=== PATIENT | female | born 1950 | race African-American/Black ===

== ENCOUNTER 2016-07-16 23:25 | Emergency (ER) | payer OTHER ==
[~2016-07-16] VITALS: Ht 154.9 cm; Wt 81.1 kg
[2016-07-16 23:31] VITALS: TEMP 36.9; Ht 154.9 cm; Wt 81.1 kg
[2016-07-17] MEDS ORDERED: OXYCODONE HCL IR 5 MG TAB (IMMEDIATE RELEASE) PO STA (00:16)
--- NOTE | 2016-07-17 00:52 | EMERGENCY ROOM VISIT NOTE ---
History Report prepared by Hien: Jonathan Lee Under the Supervision of: Dr. Aron Muse M.D. First contact with patient: 00:03 Chief Complaint: CHEST PAIN Stated Complaint: CHEST AND BACK PAIN Nursing Triage Summary: Pt reports chest/back/neck pain since last night for which she took motrin, which she reports helped "just a little bit." Pt reports that she takes prescription oxycodone every other day. She is travelling and left oxycodone at home so was unable to take any for 2 days. Pt reports pain continued today. Denies nausea/dizziness. Reports "tightness" in incision. History of Present Illness The patient is a 65 year old female who presents to the Emergency Room with complaints of waxing and waning left-sided chest pain beginning last night. The patient states that she had laparoscopic bypass surgery last month. She believes that this pain is from her incision as it is pulling and pinching similarly to the pain that she had 1 week after her surgery when she did not take her pain medication. The patient notes that she is visiting for a graduation and left her prescribed [place]codone in [place]. She states that she has been taking Motrin for the pain until she gets home with no relief of her symptoms. She complains of back pain that radiates to her neck. She denies having any shortness of breath, leg swelling, calf pain, history of blood clots , fevers, headache, and loss of consciousness. The patient states that she has had heart problems since 2008 and has previously had a stent placed. She reports that she does not want to take nitroglycerin because it makes her blood pressure drop. Source of History: patient Onset: last night Position: chest (left) Quality: other (pulling and pinching) Timing: waxes/wanes Modifying Factors (Relieving): other (none) Associated Symptoms: + back pain, + neck pain, No LOC, No SOB, No fevers, No headache Note: She denies having any leg pain and history of blood clots. Review of Systems See HPI for pertinent positives & negatives. A total of 10 systems reviewed and were otherwise negative. Past Medical & Surgical Surgical Problems: (1) H/O heart bypass surgery (2) History of heart artery stent Family History No pertinent family history stated. Social History Smoking Status: Never Smoker Marital Status: single Occupation Status: retired Current/Historical Medications Scheduled Aspirin (Aspirin Ec), 81 MG PO DAILY Atorvastatin (Lipitor), 10 MG PO DAILY Clopidogrel (Plavix), 75 MG PO DAILY Glipizide-Metformin Hcl (Glipizide/Metformin Hcl), 1 TAB PO BID Metoprolol Succ (Toprol Xl) (Toprol-Xl), 50 MG PO DAILY Scheduled PRN Oxycodone Immediate Rel Tab (Roxicodone Ir), 1-2 TAB PO Q4H PRN for Severe Pain Allergies Coded Allergies: Simvastatin (Verified Allergy, Unknown, UNKNOWN, 07/17/16) Physical Exam Vital Signs Date Time Temp Pulse Resp B/P Pulse Ox O2 Delivery O2 Flow Rate FiO2 07/17/16 01:52 83 18 170/84 98 Room Air 07/17/16 00:55 86 18 174/113 99 Room Air 07/17/16 00:01 89 07/16/16 23:56 98 Room Air 07/16/16 23:31 36.9 91 18 179/94 98 Room Air Physical Exam GENERAL: Patient is well appearing and in minimal distress. HEENT: No acute trauma, normocephalic atraumatic, mucous membranes moist, no nasal congestion, no scleral icterus. NECK: No stridor, no adenopathy, no meningismus, trachea is midline. LUNGS: No dyspnea. Clear to auscultation and equal bilaterally. No wheeze, no rhonchi. CHEST: Left chest wall tender to palpation, well healed surgery scars, no swelling or erythema. HEART: Regular rate and rhythm. No murmurs, rubs, gallops appreciated. ABDOMEN: Soft, nontender, bowel sounds positive, no masses appreciated, no peritonitis. BACK: No midline tenderness, no CVA tenderness EXTREMITIES: Normal motion all extremities, no cyanosis, no edema. NEUROLOGIC: Alert and oriented, no acute motor or sensory deficits, no focal weakness, cranial nerves grossly intact. SKIN: No rash, no jaundice, no diaphoresis. Medical Decision & Procedures ER Provider Diagnostic Interpretation: X ray results are stated below per my interpretation. Chest X-Ray 1 View: Mild elevation left diaphragm, no infiltrate, no effusion, mildly enlarged heart, no pneumothorax Laboratory Results 07/17/16 00:45 Red Blood Count 4.26, Mean Corpuscular Volume 87.1, Mean Corpuscular Hemoglobin 29.3, Mean Corpuscular Hemoglobin Concent 33.7, Mean Platelet Volume 10.2, Neutrophils (%) (Auto) 70.3, Lymphocytes (%) (Auto) 20.8, Monocytes (%) (Auto) 8.0, Eosinophils (%) (Auto) 0.7, Basophils (%) (Auto) 0.1, Neutrophils # (Auto) 6.05, Lymphocytes # (Auto) 1.79, Monocytes # (Auto) 0.69, Eosinophils # (Auto) 0.06, Basophils # (Auto) 0.01 07/17/16 00:45 Test 07/17/16 00:45 White Blood Count 8.61 K/uL (4.8-10.8) Red Blood Count 4.26 M/uL (4.2-5.4) Hemoglobin 12.5 g/dL (12.0-16.0) Hematocrit 37.1 % (37-47) Mean Corpuscular Volume 87.1 fL (80-100) Mean Corpuscular Hemoglobin 29.3 pg (25-34) Mean Corpuscular Hemoglobin Concent 33.7 g/dl (32-36) Platelet Count 348 K/uL (130-400) Mean Platelet Volume 10.2 fL (7.4-10.4) Neutrophils (%) (Auto) 70.3 % Lymphocytes (%) (Auto) 20.8 % Monocytes (%) (Auto) 8.0 % Eosinophils (%) (Auto) 0.7 % Basophils (%) (Auto) 0.1 % Neutrophils # (Auto) 6.05 K/uL (1.4-6.5) Lymphocytes # (Auto) 1.79 K/uL (1.2-3.4) Monocytes # (Auto) 0.69 K/uL (0.11-0.59) Eosinophils # (Auto) 0.06 K/uL (0-0.5) Basophils # (Auto) 0.01 K/uL (0-0.2) RDW Standard Deviation 43.3 fL (36.4-46.3) RDW Coefficient of Variation 13.6 % (11.5-14.5) Immature Granulocyte % (Auto) 0.1 % Immature Granulocyte # (Auto) 0.01 K/uL (0.00-0.02) Anion Gap 7.0 mmol/L (3-11) Est Creatinine Clear Calc Drug Dose 67.7 ml/min Estimated GFR () 88.3 Estimated GFR (Non- 76.2 BUN/Creatinine Ratio 16.7 (10-20) Calcium Level 9.1 mg/dl (8.5-10.1) Total Creatine Kinase 62 U/L (26-192) Creatine Kinase MB < 0.5 ng/ml (0.5-3.6) Creatine Kinase MB Ratio (0-3.0) Troponin I < 0.015 ng/ml (0-0.045) Laboratory results as reviewed by me. Medications Administered Medications (Trade) Dose Ordered Sig/Laron Route Start Time Stop Time Status Last Admin Dose Admin Oxycodone HCl (Roxicodone Immediate Rel Tab) 5 mg NOW STAT PO 07/17/16 00:16 07/17/16 00:17 DC 07/17/16 00:48 5 MG Oxycodone HCl (Roxicodone Immediate Rel 5MG Home Pack) 1 homepack UD ONCE PO 07/17/16 01:45 07/17/16 01:46 DC 07/17/16 01:56 1 HOMEPACK ECG Indication: chest pain Rate (beats per minute): 91 Rhythm: normal sinus Findings: T-wave inversion (Anterolateral), other (no STEMI, No significant ST depression) Comparison ECG Date: no prior available ED Course 0005: The patient was evaluated in room B3. A complete history and physical exam was performed. 0016: Oxycodone HCl 5 mg PO. 0033: Discussed the patient's case with Dr. Main, Dr. Morgan's covering attending, from [place], [place]. By description, the patient's EKG sounds similar to her previous. He notes that she has not had a troponin done since her surgery but at that point it was 0. He notes judgment call as to whether or not to bring her into the hospital. 0056: Bisacodyl 10 mg KS. 0135: The patient would like to go home and take her medication there. She states that she feels much better and her pain is almost completely resolved. We discussed the risk of this being an NV and she would still like to go home and will follow up with her darkroom worker. 0145: Oxycodone HCl 1 homepack PO 0147: Reevaluated the patient. Discussed results and discharge instructions: She verbalized understanding and agreement. The patient is ready for discharge. Medical Decision Differential: Cardiac Ischemia (STEMI, NSTEMI, Unstable Angina, etc), Aortic Dissection, Arrhythmia, Pulmonary Embolism, Pneumonia, Pneumothorax, MSK, Infectious, Pericarditis/Myocarditis, Esophageal Rupture, Gastrointestinal, amongst other pathologies entertained. 65 yr old female in town for daughter's graduation arrives for evaluation of left sided chest pain. Clearly reproducible to palpation. Recent minimally invasive CABG with Oxy IR since for pain, but left them behind in [facility] and with increased movement pain has worsened over last 24 hours. Symptoms ongoing for 24 hours. No other symptoms. Labs unremarkable. EKG with T wave inversions which appear to be similar to reported EKG in [facility]. Trop is negative. With 24 hours symptoms and negative trop I do not see clear indication for repeat trop in ED. Patient feeling improved with Oxy IR. BP meds at daughter's house which she has not yet taken this evening. Notes she will go take them now. No evidence of dissection by story, cxr nor examination. Symptoms not consistent with PE and with recent surg I felt that dimer would be non-useful in this patient. Patient offered obs here for cardiac rule out though is not interested in staying. States identical to pain she gets if she doesn't take her Oxy IR and symptoms improved now that she has it. Stable throughout ED stay. Quite elevated BP but states she will take meds on getting home. Aware she can return at any time if worsening symptoms or other concerns. Will be with family throughout next few days. Consults Time Called: 14 Consulting Physician: Dr Main, [facility] Returned Call: [phone] Discussed the patient's case with Dr. Main, Dr. Morgan's covering attending , from [place], [place]. By description, the patient's EKG sounds similar to her previous. He notes that she has not had a troponin done since her surgery but at that point it was 0. He notes judgment call as to whether or not to bring her into the hospital. Impression Primary Impression: Left sided chest pain Scribe Attestation The scribe's documentation has been prepared under my direction and personally reviewed by me in its entirety. I confirm that the note above accurately reflects all work, treatment, procedures, and medical decision making performed by me. Departure Information Dispostion Home / Self-Care Prescriptions Oxycodone Immediate Rel Tab (ROXICODONE IR) 5 Mg Tab 1-2 TAB PO Q4H Y for Severe Pain, #12 TAB Prov: Aron Muse M.D. 07/17/16 Referrals No Doctor, Assigned (PCP) Forms HOME CARE DOCUMENTATION FORM, IMPORTANT VISIT INFORMATION Patient Instructions ED Chest Pain Atypical Unkn Cause, My [facility] Additional Instructions It is very important you follow up with your primary care provider or darkroom worker as soon as possible for recheck. Take your meds as prescribed as soon as you get home. Your blood pressure was elevated during this visit. This is quite common in many people who are being evaluated in the Emergency Department for many reasons. However, it is important that you have your Primary Care Provider recheck your blood pressure and discuss whether treatment will be needed. exterminator elevated blood pressure can lead to strokes, heart attacks, kidney failure amongst other medical issues. If you develop severe headaches, chest pain, weakness in arms or legs, or other concerning symptoms call 911. You have received a narcotic pain medication. These medications may cause drowsiness and should not be used with other sedative medications. Do not drive , drink alcohol, perform dangerous activities, nor make important decisions after taking these medications. exterminator use or inappropriate use may lead to addiction.
[2016-07-17] MEDS ORDERED: BISACODYL 10 MG SUPP PR STA (00:56)
[2016-07-17 01:03] LABS: BASO % 0.1 %; BASO ABS # 0.01 K/uL (0-0.2); COMPLETE YES; EOS % 0.7 %; HEMATOCRIT 37.1 % (37-47); IG% 0.1 %; LYMPH % 20.8 %; LYMPH ABS # 1.79 K/uL (1.2-3.4); MEAN CELL VOLUME 87.1 fL (80-100); MEAN CORPUSCULAR HEMOGLOBIN 29.3 pg (25-34); MEAN CORPUSCULAR HGB CONC 33.7 g/dl (32-36); MEAN PLATELET VOLUME 10.2 fL (7.4-10.4); NEUT % 70.3 %; PLATELET COUNT 348 K/uL (130-400); RED BLOOD COUNT 4.26 M/uL (4.2-5.4); WHITE BLOOD COUNT 8.61 K/uL (4.8-10.8)
[2016-07-17 01:20] LABS: BLOOD UREA NITROGEN 14 mg/dl (7-18); BUN/CREATININE RATIO 16.7 (10-20); CALCIUM 9.1 mg/dl (8.5-10.1); CARBON DIOXIDE 27 mmol/L (21-32); CHLORIDE 109 mmol/L (98-107); CREATININE 0.82 mg/dl (0.60-1.20); GLUCOSE 94 mg/dl (70-99); POTASSIUM 3.7 mmol/L (3.5-5.1); SODIUM 143 mmol/L (136-145)
[2016-07-17] MEDS ORDERED: CLOP1TAB15 PO (01:40)
[2016-07-17] MEDS ORDERED: METO50TA7 PO (01:40)
[2016-07-17] MEDS ORDERED: ATOR10TA82 PO (01:40)
[2016-07-17] MEDS ORDERED: GLIP2.5T4 PO (01:40)
[2016-07-17] MEDS ORDERED: ASPI81TA28 PO (01:40)
[2016-07-17] MEDS ORDERED: OXYCODONE IR HOME PACK PO ONE (01:45)
[2016-07-17 01:52] VITALS: BP 170/84; PULSE 83; O2SAT 98
[2016-07-17] MEDS ORDERED: OXYC1TAB3 PO (01:54)
--- NOTE | 2016-07-17 07:39 | DIAGNOSTIC IMAGING REPORT ---
CHEST ONE VIEW PORTABLE HISTORY: Atypical Chest Pain COMPARISON: None. FINDINGS: The heart is mildly enlarged. There are low lung findings. Patchy densities at the left lung base. No pleural effusions. No pneumothorax. IMPRESSION: Low lung volumes with patchy density at the left lung base. This may represent atelectasis or pneumonia. Electronically signed by: Luis Carlos Vdies M.D. 07/17/2016 7:38 AM Dictated Date/Time: 07/17/2016 7:37 AM
== END 2016-07-17 02:00 | disposition home or self-care (01) ==
LOC: C.EDB 23:28
DX: R07.9 Chest pain, unspecified (principal); Z95.1 Presence of aortocoronary bypass graft; Z79.82 Long term (current) use of aspirin; Z79.02 Long term (current) use of antithrombotics/antiplatelets; Z79.899 Other long term (current) drug therapy